=== PATIENT | male | born 1995 | race African-American/Black ===

== ENCOUNTER 2017-09-10 15:49 | Emergency (ER) | payer SELFPAY ==
[2017-09-10] MEDS ORDERED: HYDROcodone/Acetaminophen 10/325 mg Tablet ONE (16:20)
[2017-09-10] MEDS ORDERED: Benzonatate 100 MG CAP ONE (16:20)
[2017-09-10] MEDS ORDERED: Naproxen 500 MG TAB ONE (16:20)
[2017-09-10] MEDS ORDERED: AMOXicillin 250 MG CAP ONE (16:20)
== END 2017-09-10 16:25 | disposition home or self-care (01) ==
LOC: MADERS 15:49
DX: J03.90 Acute tonsillitis, unspecified (principal)
CPT/HCPCS: 99282

== ENCOUNTER 2018-01-09 07:55 | Emergency (ER) | payer SELFPAY ==
[2018-01-09 08:44] LABS: Acetaminophen Less than 6.0 mcg/mL (10.0-30.0); Alcohol Less than 10 mg/dL (Less than 10); Anion Gap 14 mmol/L (10-20); BUN (Urea Nitrogen) 14 mg/dL (8.9-20.6); Calc. Creatinine Clearance 0 mL/min (70-130); Calcium 9.1 mg/dL (7.8-10.44); Carbon Dioxide 25 mmol/L (22-29); Chloride 104 mmol/L (98-107); Estimated GFR-MDRD Greater than 90; Glucose 103 mg/dL (70-105); Potassium 4.2 mmol/L (3.5-5.1); Salicylate Less than 8.0 mg/dL (15.0-30.0); Sodium 139 mmol/L (136-145)
[2018-01-09 08:48] LABS: Elliptocytes SLIGHT = 2-5 cells (100X) (0-1/hpf); Eosinophils 2 % (0-10); Hemoglobin 15.1 g/dL (14.0-18.0); Lymphocytes 56 % (21-51); MDiff Complete? YES; Mean Corpuscular HGB CONC 33.5 g/dL (32.0-36.0); Mean Corpuscular Hemoglobin 30.4 pg (27.0-31.0); Mean Corpuscular Volume 90.5 fL (78.0-98.0); Mean Platelet Volume 5.7 fL (7.4-10.4); Monocytes 4 % (0-10); Neutrophil 38 % (42-75); Platelet Count 260 thou/uL (130-400); RBC Distribution Width 11.4 % (11.5-14.5); Red Blood Cell (RBC) Count 4.99 mill/uL (4.70-6.10); Tear Drops SLIGHT = 2-5 cells (100X) (0-1/hpf); White Blood Cell (WBC) Count 4.6 thou/uL (4.8-10.8)
[2018-01-09 08:52] LABS: Amphetamine Not Detected (NotDetected); Barbiturates Screen Not Detected (NotDetected); Benzodiazepine Screen Not Detected (NotDetected); Cocaine Metabolite Screen Not Detected (NotDetected); Medtox Control Line Valid? VALID (VALID); Methadone Not Detected (NotDetected); Methamphetamine Not Detected (NotDetected); Opiate Screen Not Detected (NotDetected); Oxycodone Screen Not Detected (NotDetected); Phencyclidine (PCP) Not Detected (NotDetected); THC/Cannabinoid Screen Not Detected (NotDetected); Tricyclic Screen Not Detected (NotDetected)
[2018-01-09] MEDS ORDERED: EPINEPHrine 1 MG/10 ML Abboject SYRINGE ONE (14:08)
== END 2018-01-09 14:47 | disposition home or self-care (01) ==
LOC: MADERS 07:55
DX: R45.851 Suicidal ideations (principal)
CPT/HCPCS: 36415; 80048; 80306; 80307; 84443; 85025; 99285; J0171

== ENCOUNTER 2018-02-25 18:32 | Emergency (ER) | payer SELFPAY ==
[2018-02-25] MEDS ORDERED: Loperamide HCl 2 MG CAP ONE (19:15)
== END 2018-02-25 19:20 | disposition home or self-care (01) ==
LOC: MADERS 18:32
DX: R19.7 Diarrhea, unspecified (principal)
CPT/HCPCS: 99283

== ENCOUNTER 2018-03-16 08:20 | Emergency (ER) | payer SELFPAY ==
[2018-03-16] MEDS ORDERED: Ibuprofen 600 MG TAB ONE (09:30)
== END 2018-03-16 09:34 | disposition home or self-care (01) ==
LOC: MADERS 08:20
DX: S20.211A Contusion of right front wall of thorax, initial encounter (principal); V43.62XA Car passenger injured in collision with other type car in traffic accident, initial encounter
CPT/HCPCS: 99283

== ENCOUNTER 2018-04-09 20:52 | Emergency (ER) | payer SELFPAY | END 2018-04-09 21:28 | disposition home or self-care (01) | LOC: MADERS 20:52 | DX: K29.70 Gastritis, unspecified, without bleeding (principal) | CPT/HCPCS: 99283 ==

== ENCOUNTER 2018-04-16 21:32 | Emergency (ER) | payer SELFPAY ==
[2018-04-16] MEDS ORDERED: Loperamide HCl 2 MG CAP ONE (22:32)
[2018-04-16] MEDS ORDERED: Ondansetron ODT 4 MG TAB ONE (22:37)
== END 2018-04-16 22:45 | disposition home or self-care (01) ==
LOC: MADERS 21:32
DX: K52.9 Noninfective gastroenteritis and colitis, unspecified (principal)
CPT/HCPCS: 99283; Q0162